=== PATIENT | female | born 1975 | race Caucasian/White ===

== ENCOUNTER 2022-08-25 13:41 | Emergency (ER) | payer OTHER ==
[~2022-08-25] VITALS: Ht 157.5 cm; Wt 60.0 kg
[2022-08-25] MEDS ORDERED: METOCLOPRAMIDE INJ 10MG/2ML VIAL (J2765 PER 1) IV ONE (15:25)
[2022-08-25] MEDS ORDERED: NS 1,000 ML IV ONE (15:25)
[2022-08-25] MEDS ORDERED: KETOROLAC 30 MG/ML 1ML VIAL IV ONE (15:25)
[2022-08-25] MEDS ORDERED: UNRESOLVED CLARIFICATION ENTRY XX STA (15:27)
[2022-08-25] MEDS ORDERED: METOCLOPRAMIDE 10MG TAB PO ONE (16:15)
[2022-08-25] MEDS ORDERED: IBUPROFEN 600MG TAB PO ONE (16:15)
[2022-08-25 16:20] VITALS: BP 119/77
== END 2022-08-25 18:23 | disposition home or self-care (01) ==
LOC: M ED 13:41 → EDBD 13:41 → M ED 18:23
DX: R07.89 Other chest pain (principal); M25.532 Pain in left wrist; V49.50XA Passenger injured in collision with unspecified motor vehicles in traffic accident, initial encounter; Y92.410 Unspecified street and highway as the place of occurrence of the external cause; Y93.9 Activity, unspecified; Y99.9 Unspecified external cause status